=== PATIENT | male | born 2000 | race Caucasian/White ===

== ENCOUNTER → 2025-04-25 | Outpatient (CLI) | payer OTHER | LOC: EDBD 13:30 → M CARPUL 13:35 | PROVIDERS: ATTEND Internal Medicine Cardiovascular Disease | DX: R07.9 Chest pain, unspecified (principal); R06.02 Shortness of breath ==

== ENCOUNTER → 2025-04-26 | Outpatient (CLI) | payer OTHER | LOC: M EKG 10:31 | PROVIDERS: ATTEND Internal Medicine Cardiovascular Disease | DX: R55 Syncope and collapse (principal); R00.1 Bradycardia, unspecified; Z53.9 Procedure and treatment not carried out, unspecified reason ==